=== PATIENT | female | born 1970 | race American Indian/Alaskan Native ===

== ENCOUNTER 2017-08-14 11:02 | Outpatient (CLI) | payer OTHER ==
--- NOTE | 2017-08-14 15:12 | Magnetic Resonance Report ---
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 Status post bilateral mastectomy with bilateral TRAM reconstruction. COMPARISON:None.. TECHNIQUE: Axial 1.0-mm T1 without, axial high resolution 2.0-mm T2 and axial 1.0-mm dynamic Vibrant high-resolution postcontrast T1 fat saturation sequences on a 1.5 Junie magnet. The examination was performed with an 8 channel dedicated [place] breast coil. Post processing with CAD and subtraction was performed on an [employer] workstation. 16.0 cc of Multihance was injected without incident for the contrast portion of the exam. Consent was obtained prior to the administration of the contrast. FINDINGS: Right: Normal TRAM flap enhancement. No mass or suspicious enhancement. No suspicious lymph nodes. Left: Normal TRAM flap enhancement with greater enhancement than on the right side. No mass or suspicious enhancement. No suspicious lymph nodes. IMPRESSION: Negative study status post bilateral mastectomy with TRAM reconstruction. BI-RADS 1 -- Negative
== END 2017-08-14 11:03 | disposition home or self-care (01) ==
LOC: SPVIMAG 11:02
PROVIDERS: ATTEND Internal Medicine Hematology & Oncology
DX: D05.11 Intraductal carcinoma in situ of right breast (principal); Z90.13 Acquired absence of bilateral breasts and nipples
CPT/HCPCS: A9577; C8908; 77059

== ENCOUNTER 2021-02-15 14:11 | Emergency (ER) | payer OTHER ==
--- NOTE | 2021-02-15 15:20 | Event Note ---
ED Screening Note Date of service: 02/15/21 Time: 15:19 ED Screening Note: 50 y o female presents with llq abd pain that began today This initial assessment/diagnostic orders/clinical plan/treatment(s) is/are subject to change based on patients health status, clinical progression and re-assessment by fellow clinical providers in the ED. Further treatment and workup at subsequent clinical providers discretion. Patient/guardian urged not to elope from the ED as their condition may be serious if not clinically assessed and managed. Initial orders include: labs, ua
[2021-02-15 15:21] VITALS: BP 169/105
[2021-02-15 15:57] LABS: Basophils % (Auto) 0.4 % (0.0-1.8); Eosinophils % (Auto) 0.5 % (0.0-4.3); Hematocrit 39.1 % (30.3-42.9); Hemoglobin 13.3 gm/dl (10.1-14.3); Lymphocytes # (Auto) 1.9 K/mm3 (1.2-5.4); Lymphocytes % (Auto) 20.9 % (13.4-35.0); Mean Corpuscular HGB Conc 34 % (30-34); Mean Corpuscular Volume 90 fl (79-97); Monocytes # (Auto) 0.7 K/mm3 (0.0-0.8); Monocytes % (Auto) 7.8 % (0.0-7.3); Platelet Count 246 K/mm3 (140-440); Red Blood Count 4.36 M/mm3 (3.65-5.03); Red Cell Distribution Width 14.3 % (13.2-15.2)
[2021-02-15 16:12] LABS: Alanine Aminotransferase 37 units/L (7-56); Albumin 4.6 g/dL (3.9-5); Blood Urea Nitrogen 12 mg/dL (7-17); Calcium 9.2 mg/dL (8.4-10.2); Hemolysis Index 8
[2021-02-15 16:22] LABS: BUN/Creatinine Ratio 24
[2021-02-15 17:23] LABS: Bacteria,Urine 1+ /HPF (Negative); Bilirubin,Urine NEG (Negative); Blood,Urine NEG (Negative); Color,Urine Yellow (Yellow); Mucus,Urine FEW /HPF; Protein,Urine <15 mg/dL mg/dL (Negative); Urobilinogen,Urine < 2.0 mg/dL (<2.0)
[2021-02-15] MEDS ORDERED: IBUPROFEN 800 MG TAB PO ONE (19:55)
--- NOTE | 2021-02-15 20:32 | XRay Report ---
ABDOMEN 1 VIEW 02/15/2021 7:22 PM INDICATION / CLINICAL INFORMATION: MAIN. Abdomen 1 view INDICATION: Left lower quadrant pain FINDINGS: Nonspecific bowel gas pattern. No free air is identified. No large stones are seen. Signer Name: Jimy Dejesus MD Signed: 02/15/2021 8:28 PM Workstation Name: [id number]
--- NOTE | 2021-02-15 21:40 | Emergency Department Report ---
ED Abdominal Pain HPI - General Chief Complaint: Abdominal Pain Stated Complaint: ABD PAIN Time Seen by Provider: 02/15/21 19:47 Source: patient Mode of arrival: Ambulatory Limitations: No Limitations - History of Present Illness Initial Comments: pt is a 50 y o female presents with LLQ Abd Pain that began today, pt denies n/v, no fever or chills, no pain does radiate to left flank, pt denies dysuria, no frequency, no vaginal discharge, pt denies fall injury or trauma. symptoms are exacerbated by movement, symptoms are relieved by rest. MD Complaint: abdominal pain Severity scale (0 -10): 3 - Related Data Previous Rx's Medication Instructions Recorded Last Taken Type Naproxen 500 mg PO BID PRN #30 tablet 02/15/21 Unknown Rx Allergies Allergy/AdvReac Type Severity Reaction Status Date / Time Penicillins Allergy Hives Verified 02/15/21 15:22 Sulfa (Sulfonamide Allergy Hives Verified 02/15/21 15:22 Antibiotics) ED Review of Systems ROS: Stated complaint: ABD PAIN Other details as noted in HPI Constitutional: denies: chills, fever Eyes: denies: eye pain, eye discharge, vision change ENT: denies: ear pain, throat pain Respiratory: denies: cough, shortness of breath, wheezing Cardiovascular: denies: chest pain, palpitations Endocrine: no symptoms reported Gastrointestinal: abdominal pain (LLQ). denies: nausea, vomiting, diarrhea, constipation, melena, hematochezia Genitourinary: denies: urgency, dysuria, discharge Musculoskeletal: back pain (left flank). denies: joint swelling, arthralgia Skin: denies: rash, lesions Neurological: denies: headache, weakness, paresthesias Psychiatric: denies: anxiety, depression Hematological/Lymphatic: denies: easy bleeding, easy bruising ED Past Medical Hx - Past Medical History Previous Medical History?: Yes Hx Hypertension: Yes - Medications Home Medications: Home Medications Medication Instructions Recorded Confirmed Last Taken Type Naproxen 500 mg PO BID PRN #30 tablet 02/15/21 Unknown Rx ED Physical Exam - General Limitations: No Limitations General appearance: alert, in no apparent distress - Head Head exam: Present: atraumatic, normocephalic - Eye Eye exam: Present: normal appearance, EOMI Pupils: Present: normal accommodation - ENT ENT exam: Present: mucous membranes moist - Neck Neck exam: Present: normal inspection - Respiratory Respiratory exam: Present: normal lung sounds bilaterally. Absent: respiratory distress - Cardiovascular Cardiovascular Exam: Present: regular rate, normal rhythm, normal heart sounds. Absent: systolic murmur, diastolic murmur, rubs, gallop - GI/Abdominal GI/Abdominal exam: Present: soft, tenderness (mild tender left upper quad no rebound no peritineal signs. ), normal bowel sounds. Absent: distended, guarding, rebound, rigid, organomegaly, mass, bruit, hernia - Rectal Rectal exam: Present: deferred - Extremities Exam Extremities exam: Present: normal inspection, full ROM, normal capillary refill. Absent: tenderness - Back Exam Back exam: Present: normal inspection, full ROM, tenderness. Absent: CVA tenderness (R), CVA tenderness (L), muscle spasm, paraspinal tenderness, vertebral tenderness, rash noted - Expanded Back Exam Expanded Back exam: Absent: saddle anesthesia Back exam: Negative Straight Leg Raising: Left, Right - Neurological Exam Neurological exam: Present: alert, oriented X3 - Psychiatric Psychiatric exam: Present: normal affect, normal mood - Skin Skin exam: Present: warm, dry, intact, normal color. Absent: rash ED Course Vital Signs 02/15/21 15:20 Temperature 98.7 F Pulse Rate 82 Respiratory 16 Rate Blood Pressure 169/105 [Right] O2 Sat by Pulse 98 Oximetry ED Medical Decision Making - Lab Data Result diagrams: 02/15/21 15:32 02/15/21 15:32 Labs 02/15/21 02/15/21 02/15/21 15:32 15:32 16:01 WBC 9.0 RBC 4.36 Hgb 13.3 Hct 39.1 MCV 90 MCH 31 MCHC 34 RDW 14.3 Plt Count 246 Lymph % (Auto) 20.9 [place] % (Auto) 7.8 H Eos % (Auto) 0.5 Baso % (Auto) 0.4 Lymph # (Auto) 1.9 [place] # (Auto) 0.7 Eos # (Auto) 0.0 Baso # (Auto) 0.0 Seg Neutrophils % 70.4 H Seg Neutrophils # 6.3 Sodium 137 Potassium 3.9 Chloride 97.9 L Carbon Dioxide 30 Anion Gap 13 BUN 12 Creatinine 0.5 L Estimated GFR > 60 BUN/Creatinine Ratio 24 Glucose 107 H Calcium 9.2 Total Bilirubin 0.90 AST 37 ALT 37 Alkaline Phosphatase 94 Total Protein 7.6 Albumin 4.6 Albumin/Globulin Ratio 1.5 Urine Color Yellow Urine Turbidity Clear Urine pH 6.0 Ur Specific [place] 1.015 Urine Protein <15 mg/dl Urine Glucose (UA) Neg Urine Ketones Neg Urine Blood Neg Urine Nitrite Neg Urine Bilirubin Neg Urine Urobilinogen < 2.0 Ur Leukocyte Esterase Neg Urine WBC (Auto) 1.0 Urine RBC (Auto) 1.0 U Epithel Cells (Auto) 1.0 Urine Bacteria (Auto) 1+ Urine Mucus Few - Radiology Data Radiology results: report reviewed, image reviewed ABDOMEN 1 VIEW 02/15/2021 7:22 PM INDICATION / CLINICAL INFORMATION: MAIN. Abdomen 1 view INDICATION: Left lower quadrant pain FINDINGS: Nonspecific bowel gas pattern. No free air is identified. No large stones are seen. Signer Name: Jimy Barker MD Signed: 02/15/2021 8:28 PM Workstation Name: [facility] Transcribed By: DAYAMI Dictated By: DURGA BARKER MD Electronically Authenticated By: DURGA BARKER MD Signed Date/Time: 02/15/212027 DD/ 26 TD/TT: - Medical Decision Making KUB is normal, UA normal, labs normal, patient is currently tolerating p.o. intake without nausea vomiting. Patient will be DC'd home, patient will follow- up with primary care doctor in 2 to 3 days. Patient verbalized agreement and understanding with discharge plan. Patient DC'd home in stable condition at this time. Critical care attestation.: If time is entered above; I have spent that time in minutes in the direct care of this critically ill patient, excluding procedure time. ED Disposition Clinical Impression: Abdominal pain Qualifiers: Abdominal location: left upper quadrant Qualified Code(s): R10.12 - Left upper quadrant pain Disposition: DC-01 TO HOME OR SELFCARE Is pt being admited?: No Does the pt Need Aspirin: No Condition: Stable Instructions: Abdominal Pain (ED), Abdominal Pain, Adult, [id number] Additional Instructions: take medications as prescribed, follow up with your doctor in 2-3 days , return to emergency if symptoms worsen Prescriptions: Naproxen 500 mg PO BID PRN #30 tablet PRN Reason: pain Referrals: SATURNINO FRANKLIN MD [Primary Care Provider] - 3-5 Days Forms: Work/School Release Form(ED) Time of Disposition: 21:49
== END 2021-02-15 22:00 | disposition home or self-care (01) ==
LOC: ED 14:11
DX: R10.32 Left lower quadrant pain (principal); I10 Essential (primary) hypertension; Z79.899 Other long term (current) drug therapy; Z88.0 Allergy status to penicillin; Z88.2 Allergy status to sulfonamides
CPT/HCPCS: 36415; 74018; 80053; 81001; 85025